=== PATIENT | male | born 1945 | race Caucasian/White ===

== ENCOUNTER 2019-01-26 10:59 | Observation (INO) | payer OTHER, MEDICARE ==
[2019-01-26] MEDS ORDERED: NITROGLYCERIN OINT 1 INCH/GM PACKET TOPICAL STA (11:48)
--- NOTE | 2019-01-26 11:56 | ED ---
General Adult HPI - General Chief complaint: Chest Pain Stated complaint: chest pain Time Seen by Provider: 01/26/19 11:15 Source: patient, RN notes reviewed Mode of arrival: ambulatory Limitations: no limitations - History of Present Illness Initial comments: This a 73-year-old male who presents emergency Department with no significant past medical history. Patient states he's been having chest pain since it goes away almost entirely but comes back. Patient states the pain is in the center of his chest he denies any radiation of the pain. Patient denies any shortness of breath. Patient denies any diaphoretic episodes. Patient denies any nausea. Patient states it is not reproducible with palpation. Patient states it's not reproducible with any type of movement. Patient states currently it is at its peak it it's only mild. Recent denies any smoking history. Patient denies any family history. Patient denies any lightheadedness or dizziness. Patient denies any headache patient denies numbness weakness. Patient denies abdominal pain patient denies any vomiting or diarrhea. Patient denies any recent fever chills or cough. Patient denies any swelling to legs or calf tenderness. Patient denies any recent trips or travel. - Related Data Home Medications Medication Instructions Recorded Confirmed Aspirin EC [Ecotrin Low Dose] 81 mg PO DAILY 01/26/19 01/26/19 Cholecalciferol (Vitamin D3) 2,000 unit PO DAILY 01/26/19 01/26/19 [Vitamin D3] Fish Oil/Dha/Epa [Fish Oil 1,200 1 cap PO DAILY 01/26/19 01/26/19 mg Fish Oil] Losartan [Cozaar] 50 mg PO DAILY 01/26/19 01/26/19 Milk Thistle 150 mg PO DAILY 01/26/19 01/26/19 Multivitamins, Thera [Multivitamin 1 tab PO DAILY 01/26/19 01/26/19 (formulary)] Turmeric/Turmeric Root Extract 1 cap PO DAILY 01/26/19 01/26/19 [Turmeric 450-50 mg Capsule] Zinc 50 mg PO DAILY 01/26/19 01/26/19 Allergies Allergy/AdvReac Type Severity Reaction Status Date / Time No Known Allergies Allergy Verified 01/26/19 12:05 Review of Systems ROS Statement: Those systems with pertinent positive or pertinent negative responses have been documented in the HPI. ROS Other: All systems not noted in ROS Statement are negative. Past Medical History Past Medical History: No Reported History History of Any Multi-Drug Resistant Organisms: None Reported Past Surgical History: Hernia Repair Additional Past Surgical History / Comment(s): collapsed lung Past Psychological History: No Psychological Hx Reported Smoking Status: Never smoker Past Alcohol Use History: None Reported Past Drug Use History: None Reported General Exam - General Exam Comments Initial Comments: GENERAL: Patient is well-developed and well-nourished. Patient is nontoxic and well- hydrated and is in mild distress. ENT: Neck is soft and supple. No significant lymphadenopathy is noted. Oropharynx is clear. Moist mucous membranes. Neck has full range of motion without eliciting any pain. EYES: The sclera were anicteric and conjunctiva were pink and moist. Extraocular movements were intact and pupils were equal round and reactive to light. Eyelids were unremarkable. PULMONARY: Unlabored respirations. Good breath sounds bilaterally. No audible rales rho nchi or wheezing was noted. CARDIOVASCULAR: There is a regular rate and rhythm without any murmurs gallops or rubs. ABDOMEN: Soft and nontender with normal bowel sounds. SKIN: Skin is clear with no lesions or rashes and otherwise unremarkable. NEUROLOGIC: Patient is alert and oriented x3. Cranial nerves II through XII are grossly intact. Motor and sensory are also intact. Normal speech, volume and content. Symmetrical smile. MUSCULOSKELETAL: Normal extremities with adequate strength and full range of motion. LYMPHATICS: No significant lymphadenopathy is noted PSYCHIATRIC: Normal psychiatric evaluation. Limitations: no limitations Course Vital Signs 01/26/19 01/26/19 11:14 12:07 Temperature 98.5 F Pulse Rate 110 H 91 Respiratory 17 16 Rate Blood Pressure 125/83 125/83 O2 Sat by Pulse 98 99 Oximetry Medical Decision Making - Medical Decision Making EKG shows normal sinus rhythm at 91 bpm [place] interval 172 QRS 76 QT interval 354 QTC is 435. Patient's EKG shows no ST segment elevation or depression or T wave abnormalities are noted. Chest x-ray shows no acute normalities. Patient received nitro paste and stated that shortly thereafter his pain completely subsided. I started the patient on heparin. I spoke with [facility] hospitalist and they agreed to accept the patient admitted the patient wrote admitting orders I consulted cardiology. I continued heparin and aspirin and Nitropaste on the floor. - Lab Data Result diagrams: 01/26/19 11:43 01/26/19 11:43 Lab Results 01/26/19 01/26/19 01/26/19 Range/Units 11:43 11:43 11:43 WBC 6.5 (3.8-10.6) k/uL RBC 4.95 (4.30-5.90) m/uL Hgb 17.1 (13.0-17.5) gm/dL Hct 47.7 (39.0-53.0) % MCV 96.4 (80.0-100.0) fL MCH 34.5 (25.0-35.0) pg MCHC 35.8 (31.0-37.0) g/dL RDW 14.6 (11.5-15.5) % Plt Count 154 (150-450) k/uL Neutrophils % 77 % Lymphocytes % 15 % Monocytes % 5 % Eosinophils % 1 % Basophils % 1 % Neutrophils # 5.0 (1.3-7.7) k/uL Lymphocytes # 1.0 (1.0-4.8) k/uL Monocytes # 0.3 (0-1.0) k/uL Eosinophils # 0.1 (0-0.7) k/uL Basophils # 0.0 (0-0.2) k/uL PT 10.7 (9.0-12.0) sec INR 1.0 (<1.2) APTT 25.4 (22.0-30.0) sec Sodium 139 (137-145) mmol/L Potassium 4.2 (3.5-5.1) mmol/L Chloride 105 (98-107) mmol/L Carbon Dioxide 20 L (22-30) mmol/L Anion Gap 14 mmol/L BUN 18 (9-20) mg/dL Creatinine 0.92 (0.66-1.25) mg/dL Est GFR (CKD-EPI)AfAm >90 (>60 ml/min/1.73 sqM) Est GFR (CKD-EPI)NonAf 84 (>60 ml/min/1.73 sqM) Glucose 86 (74-99) mg/dL Calcium 9.3 (8.4-10.2) mg/dL Magnesium 2.1 (1.6-2.3) mg/dL Total Bilirubin 1.6 H (0.2-1.3) mg/dL AST 30 (17-59) U/L ALT 30 (21-72) U/L Alkaline Phosphatase 50 (38-126) U/L Troponin I (0.000-0.034) ng/mL Total Protein 7.4 (6.3-8.2) g/dL Albumin 4.7 (3.5-5.0) g/dL 01/26/19 Range/Units 11:43 WBC (3.8-10.6) k/uL RBC (4.30-5.90) m/uL Hgb (13.0-17.5) gm/dL Hct (39.0-53.0) % MCV (80.0-100.0) fL MCH (25.0-35.0) pg MCHC (31.0-37.0) g/dL RDW (11.5-15.5) % Plt Count (150-450) k/uL Neutrophils % % Lymphocytes % % Monocytes % % Eosinophils % % Basophils % % Neutrophils # (1.3-7.7) k/uL Lymphocytes # (1.0-4.8) k/uL Monocytes # (0-1.0) k/uL Eosinophils # (0-0.7) k/uL Basophils # (0-0.2) k/uL PT (9.0-12.0) sec INR (<1.2) APTT (22.0-30.0) sec Sodium (137-145) mmol/L Potassium (3.5-5.1) mmol/L Chloride (98-107) mmol/L Carbon Dioxide (22-30) mmol/L Anion Gap mmol/L BUN (9-20) mg/dL Creatinine (0.66-1.25) mg/dL Est GFR (CKD-EPI)AfAm (>60 ml/min/1.73 sqM) Est GFR (CKD-EPI)NonAf (>60 ml/min/1.73 sqM) Glucose (74-99) mg/dL Calcium (8.4-10.2) mg/dL Magnesium (1.6-2.3) mg/dL Total Bilirubin (0.2-1.3) mg/dL AST (17-59) U/L ALT (21-72) U/L Alkaline Phosphatase (38-126) U/L Troponin I <0.012 (0.000-0.034) ng/mL Total Protein (6.3-8.2) g/dL Albumin (3.5-5.0) g/dL Critical Care Time Critical Care Time: Yes Total Critical Care Time: 35 Disposition Clinical Impression: Unstable angina pectoris Disposition: ADMITTED IP TO THIS HOSP Referrals: [facility],Clinic [Primary Care Provider] - 1-2 days Time of Disposition: 13:30
--- NOTE | 2019-01-26 12:08 | XR ---
EXAMINATION TYPE: XR chest 2V DATE OF EXAM: 01/26/2019 COMPARISON: None HISTORY: 73-year-old male with chest pain TECHNIQUE: PA and lateral views FINDINGS: The cardiomediastinal silhouette, aorta, and pulmonary vasculature are within normal limits. Some nod ularity at the left perihilar region probably represents vessels on end. Old healed fracture deformit ies left posterior ribs. No consolidation or pleural effusion. IMPRESSION: 1. No acute cardiopulmonary process. 2. Some left perihilar nodularity probably superimposition shadow with hilar vessels. 4-6 week follow -up radiographs recommended to reassess.
[2019-01-26 12:10] LABS: Basophils % (A) 1 %; Eosinophils # (A) 0.1 k/uL (0-0.7); Eosinophils % (A) 1 %; HCT 47.7 % (39.0-53.0); HGB 17.1 gm/dL (13.0-17.5); Lymphocytes % (A) 15 %; MCH 34.5 pg (25.0-35.0); MCHC 35.8 g/dL (31.0-37.0); MCV 96.4 fL (80.0-100.0); Mean Platelet Volume 7.2; Monocytes # (A) 0.3 k/uL (0-1.0); Monocytes % (A) 5 %; Neutrophils % (A) 77 %; Platelet Count 154 k/uL (150-450); RBC 4.95 m/uL (4.30-5.90); RDW 14.6 % (11.5-15.5); WBC 6.5 k/uL (3.8-10.6)
[2019-01-26 12:19] LABS: Partial Thromboplastin Time 25.4 sec (22.0-30.0); Prothrombin Time 10.7 sec (9.0-12.0)
[2019-01-26 12:31] LABS: ALT 30 U/L (21-72); AST 30 U/L (17-59); African American GFR (CKD) >90 (>60 ml/min/1.73 sqM); Albumin 4.7 g/dL (3.5-5.0); Alkaline Phosphatase 50 U/L (38-126); Anion Gap 14 mmol/L; Blood Urea Nitrogen 18 mg/dL (9-20); Calcium 9.3 mg/dL (8.4-10.2); Carbon Dioxide 20 mmol/L (22-30); Chloride 105 mmol/L (98-107); Glucose 86 mg/dL (74-99); Magnesium 2.1 mg/dL (1.6-2.3); Potassium 4.2 mmol/L (3.5-5.1); Sodium 139 mmol/L (137-145); Total Bilirubin 1.6 mg/dL (0.2-1.3); Total Protein 7.4 g/dL (6.3-8.2)
[2019-01-26] MEDS ORDERED: HEPARIN SODIUM,PORCINE 5,000 UNIT/ML 1 ML VIAL IV ONE (13:26)
[2019-01-26] MEDS ORDERED: HEPARIN SOD,PORK IN 0.45% NACL 25,000 UNIT in 0.45% NACL 1 250ML.BAG IV SCH (13:30)
[2019-01-26] MEDS ORDERED: NITROGLYCERIN SL TABS 0.4 MG TAB SUBLINGUAL PRN (13:33)
--- NOTE | 2019-01-26 15:49 | P.CRDCN ---
History of Present Illness History of present illness: This is a pleasant 73-year-old male past medical history significant for hypertension and borderline dyslipidemia. 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 He states on Saturday night he was at home and he started feeling a fluttering sensation in his chest. He states his heart felt like it was racing and irregu lar. The symptoms were associated with some mild dizziness. This happened for approximately 60-90 minutes and slowly subsided on its own. After the palpitations subsided he then noticed a dull ache in the left precordial region. The symptoms have been fairly constant since that time. He has been quite physically active moving furniture and television in his home and in the chest discomfort remained constant with no increase in intensity. He denies radiation to the arm, back, neck or jaw. He denies associated shortness of breath, nausea, vomiting or diaphoresis. He has had no further episodes of palpitations since Saturday. He is seen and examined sitting in the emergency depa rtment in no acute distress. He does describe ongoing dull achy chest discomfort. Telemetry tracings reveal sinus tachycardia heart rate goes up around 110 at times. EKG reveals sinus mechanism with no acute ST or T wave abnormalities noted. Chest x-ray is negative for an acute cardiopulmonary process. Laboratory data reviewed, cardiac enzymes negative 1. Current cardiac medications include losartan 50 mg daily and aspirin 81 mg daily. Patient states he underwent stress test 15 years ago in [place] that was unremarkable. He has never had a heart catheterization. At the time of my exam: CONSTITUTIONAL: Denies fever. Denies chills. EYES: Denies blurred vision. Denies vision changes. Denies eye pain. EARS, NOSE, MOUTH & THROAT: Denies headache. Denies sore throat. Denies ear pain. CARDIOVASCULAR: Denies chest pain. Denies shortness of breath. Denies orthopnea. Denies PND. Denies palpitations. RESPIRATORY: Denies cough. GASTROINTESTINAL: Denies abdominal pain. Denies diarrhea. Denies constipation. Denies nausea. Denies vomiting. MUSCULOSKELETAL: Denies myalgias. INTEGUMENTARY: Denies pruitis. Denies rash. NEUROLOGIC: Denies numbness. Denies tingling. Denies weakness. PSYCHIATRIC: Denies anxiety. Denies depression. ENDOCRINE: Denies fatigue. Denies weight change. Denies polydipsia. Denies polyurina. GENITOURINARY: Denies burning, hematuria or urgency with micturation. HEMATOLOGIC: Denies history of anemia. Denies bleeding. Blood pressure 114/90 heart rate 91 afebrile and maintaining oxygen saturation on room air GENERAL: This is a 73-year-old male in no apparent distress at the time of my examination. HEENT: Head is atraumatic, normocephalic. Pupils are equal, round. Sclerae anicteric. Conjunctivae are clear. Mucous membranes of the mouth are moist. Neck is supple. There is no jugular venous distention. No carotid bruit is heard. LUNGS: Clear to auscultation no wheezes, rales or rhonchi. No chest wall tenderness is noted on palpation or with deep breathing. HEART: Regular rate and rhythm with systolic ejection murmur at the base, no rubs or gallops. S1 and S2 heard. ABDOMEN: Soft, nontender. Bowel sounds are heard. No organomegaly noted. EXTREMITIES: No evidence of peripheral edema and no calf tenderness noted. VASCULAR: Radial and dorsalis pedis pulses palpated, no evidence of clubbing. NEUROLOGIC: Patient is awake, alert and oriented x3. ASSESSMENT Chest pain and palpitations. Hypertension Dyslipidemia Sinus tachycardia PLAN Continue to obtain serial cardiac enzymes to rule out an acute event. Check lipid profile and TSH. Obtain 2D echocardiogram and doppler study to assess cardiac structure and function. Ongoing cardiac monitoring for an acute arrhythmia. If enzymes are normal we will pursue stress testing. Thank you kindly for this consultation. Nurse Practitioner note has been reviewed, I agree with a documented findings and plan of care. Patient was seen and examined. Past Medical History Past Medical History: No Reported History History of Any Multi-Drug Resistant Organisms: None Reported Past Surgical History: Hernia Repair Additional Past Surgical History / Comment(s): collapsed lung Past Psychological History: No Psychological Hx Reported Smoking Status: Never smoker Past Alcohol Use History: None Reported Past Drug Use History: None Reported Medications and Allergies Home Medications Medication Instructions Recorded Confirmed Type Aspirin EC [Ecotrin Low Dose] 81 mg PO DAILY 01/26/19 01/26/19 History Cholecalciferol (Vitamin D3) 2,000 unit PO DAILY 01/26/19 01/26/19 History [Vitamin D3] Fish Oil/Dha/Epa [Fish Oil 1,200 1 cap PO DAILY 01/26/19 01/26/19 History mg Fish Oil] Losartan [Cozaar] 50 mg PO DAILY 01/26/19 01/26/19 History Milk Thistle 150 mg PO DAILY 01/26/19 01/26/19 History Multivitamins, Thera [Multivitamin 1 tab PO DAILY 01/26/19 01/26/19 History (formulary)] Turmeric/Turmeric Root Extract 1 cap PO DAILY 01/26/19 01/26/19 History [Turmeric 450-50 mg Capsule] Zinc 50 mg PO DAILY 01/26/19 01/26/19 History Allergies Allergy/AdvReac Type Severity Reaction Status Date / Time No Known Allergies Allergy Verified 01/26/19 12:05 Physical Exam Vitals: Vital Signs Temp Pulse Resp BP Pulse Ox 01/26/19 13:51 91 16 114/90 99 01/26/19 12:07 91 16 125/83 99 01/26/19 11:14 98.5 F 110 H 17 125/83 98 Intake and Output 01/26/19 01/26/19 01/26/19 06:59 14:59 22:59 Other: Weight 68.765 kg Results 01/26/19 11:43 01/26/19 11:43 Cardiac Enzymes 01/26/19 01/26/19 Range/Units 11:43 11:43 AST 30 (17-59) U/L Troponin I <0.012 (0.000-0.034) ng/mL Coagulation 01/26/19 Range/Units 11:43 PT 10.7 (9.0-12.0) sec APTT 25.4 (22.0-30.0) sec CBC 01/26/19 Range/Units 11:43 WBC 6.5 (3.8-10.6) k/uL RBC 4.95 (4.30-5.90) m/uL Hgb 17.1 (13.0-17.5) gm/dL Hct 47.7 (39.0-53.0) % Plt Count 154 (150-450) k/uL Comprehensive Metabolic Panel 01/26/19 Range/Units 11:43 Sodium 139 (137-145) mmol/L Potassium 4.2 (3.5-5.1) mmol/L Chloride 105 (98-107) mmol/L Carbon Dioxide 20 L (22-30) mmol/L BUN 18 (9-20) mg/dL Creatinine 0.92 (0.66-1.25) mg/dL Glucose 86 (74-99) mg/dL Calcium 9.3 (8.4-10.2) mg/dL AST 30 (17-59) U/L ALT 30 (21-72) U/L Alkaline Phosphatase 50 (38-126) U/L Total Protein 7.4 (6.3-8.2) g/dL Albumin 4.7 (3.5-5.0) g/dL Current Medications Generic Name Dose Route Start Last Admin Trade Name Freq PRN Reason Stop Dose Admin Aspirin 325 mg 01/27/19 09:00 Aspirin PO DAILY [facility] Heparin Sodium/Sodium Chloride 250 mls @ 8.252 mls/hr 01/26/19 13:30 01/26/19 13:46 25,000 unit/ Sodium Chloride IV 12 units/kg/hr .Q24H MANDI 8.252 mls/hr Administration Protocol 12 UNITS/KG/HR Nitroglycerin 0.4 mg 01/26/19 13:33 Nitrostat SUBLINGUAL Q5M PRN Chest Pain Nitroglycerin 1 inch 01/26/19 18:00 Nitro-Bid Oint TOPICAL Q6HR MANDI Intake and Output 01/26/19 01/26/19 01/26/19 06:59 14:59 22:59 Other: Weight 68.765 kg Patient Weight 01/27/19 06:59 Weight 68.765 kg 01/26/19 11:43 01/26/19 11:43
[2019-01-26] MEDS ORDERED: NITROGLYCERIN OINT 1 INCH/GM PACKET TOPICAL SCH (18:00)
[2019-01-26 21:13] VITALS: BMI 21.7
[2019-01-26 21:50] VITALS: RESP 18
--- NOTE | 2019-01-27 00:24 | P.HPIM ---
History of Present Illness H&P Date: 01/26/19 Chief Complaint: Chest pain Patient is a 73-year-old male with a known history of hypertension came to ER with the complaints of chest pain/pressure. Patient says that he felt like it irregular heartbeat About 5 days ago. One day after that she developed dull ache left retrosternal pain which has been present throughout the weekend. Patient tried to increase the dose of aspirin tablets but could not get relief. Patient has been constant. Denied any exertional shortness of breath or chest pain. Patient has been staying been without change in intensity. No radiation. No associated nausea vomiting or diaphoresis. Patient came to the hospital due to ongoing chest pain. Patient says that she gets heartburn symptoms and uses Tums on and off. Chest x-ray showed no acute cardiopulmonary process. EKG showed normal sinus rhythm.. No ST-T wave abnormalities noted. Troponin 2 negative Patient denied any prior cardiac history. Laboratory data showed slightly el evated bilirubin 1.6 normal being 1.3 Denied any abdominal pain. No diarrhea. No cough or sputum production. No recent illnesses. Review of Systems Constitutional: Patient denies any fever or chills . No generalized weakness or weight loss. Abdomen: Patient denied nausea vomiting and diarrhea and abdominal pain. Cardiovascular: Patient denies any chest pain or short of breath no palpitations. Respiratory: patient denied any cough is from production. No shortness of breath Neurologic: Patient denied any numbness or tingling headache. Musculoskeletal: Patient denies any complaints of joint swelling or deformity. Skin: Negative Psychiatric: Negative Endocrine: No heat or cold intolerance. No recent weight gain. Genitourinary: No dysuria or hematuria. All other 14 point ROS negative except the above Past Medical History Past Medical History: No Reported History History of Any Multi-Drug Resistant Organisms: None Reported Past Surgical History: Hernia Repair Additional Past Surgical History / Comment(s): collapsed lung Past Psychological History: No Psychological Hx Reported Smoking Status: Never smoker Past Alcohol Use History: None Reported Past Drug Use History: None Reported - Past Family History Father History Unknown: Yes Mother History Unknown: Yes Medications and Allergies Home Medications Medication Instructions Recorded Confirmed Type Aspirin EC [Ecotrin Low Dose] 81 mg PO DAILY 01/26/19 01/26/19 History Cholecalciferol (Vitamin D3) 2,000 unit PO DAILY 01/26/19 01/26/19 History [Vitamin D3] Fish Oil/Dha/Epa [Fish Oil 1,200 1 cap PO DAILY 01/26/19 01/26/19 History mg Fish Oil] Losartan [Cozaar] 50 mg PO DAILY 01/26/19 01/26/19 History Milk Thistle 150 mg PO DAILY 01/26/19 01/26/19 History Multivitamins, Thera [Multivitamin 1 tab PO DAILY 01/26/19 01/26/19 History (formulary)] Turmeric/Turmeric Root Extract 1 cap PO DAILY 01/26/19 01/26/19 History [Turmeric 450-50 mg Capsule] Zinc 50 mg PO DAILY 01/26/19 01/26/19 History Allergies Allergy/AdvReac Type Severity Reaction Status Date / Time No Known Allergies Allergy Verified 01/26/19 12:05 Physical Exam Vitals: Vital Signs Temp Pulse Resp BP Pulse Ox 01/26/19 13:51 91 16 114/90 99 01/26/19 12:07 91 16 125/83 99 01/26/19 11:14 98.5 F 110 H 17 125/83 98 Intake and Output 01/26/19 01/26/19 01/26/19 06:59 14:59 22:59 Other: Weight 68.765 kg PHYSICAL EXAMINATION: Patient is lying in the bed comfortably, no acute distress, awake alert and oriented.. HEENT: Normocephalic. Neck is supple. Pupils reactive. Nostrils clear. Oral cavity is moist. Ears reveal no drainage. Neck reveals no JVD, carotid bruits, or thyromegaly. CHEST EXAMINATION: Trachea is central. Symmetrical expansion. Lung meier clear to auscultation and percussion. CARDIAC: Normal S1, S2 with no gallops. No murmurs ABDOMEN: Soft. Bowel sounds normal. No organomegaly. No abdominal bruits. Extremities: reveal no edema. No clubbing or cyanosis Neurologically awake, alert, oriented x3 with well-coordinated movements. No focal deficits noted Skin: No rash or skin lesions. Psychiatric: Coperative. Nonsuicidal Musculoskeletal: No joint swelling or deformity. Normal range of motion. Results CBC & Chem 7: 01/26/19 11:43 01/26/19 11:43 Labs: Abnormal Lab Results - Last 24 Hours (Table) 01/26/19 Range/Units 11:43 Carbon Dioxide 20 L (22-30) mmol/L Total Bilirubin 1.6 H (0.2-1.3) mg/dL Thrombosis Risk Factor Assmnt - DVT/VTE Prophylaxis DVT/VTE Prophylaxis: Pharmacologic Prophylaxis ordered Assessment and Plan Assessment: Atypical chest pain. Constant dull pain. Ruled out ACS. Palpitations. Rule out arrhythmia. TSH within normal limits. Occasional GERD-like symptoms Hypertension DVT prophylaxis Plan: Patient will be continued on telemetry monitoring. Serial EKG and troponin 3. Cardiology was consulted. TSH is within normal limits. Continue to follow closely and further recommendations based on the clinical course. Time with Patient: Greater than 30
[2019-01-27 01:55] LABS: Cholesterol 255 mg/dL (<200); HDL Cholesterol 71 mg/dL (40-60); LDL Cholesterol,Calculated 124 mg/dL (0-99); Triglycerides 299 mg/dL (<150)
--- NOTE | 2019-01-27 08:51 | P.PN ---
Subjective This is a pleasant 73-year-old male past medical history significant for hypertension and borderline dyslipidemia. 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 He is seen and examined resting comfortably in bed in no acute distress. He denies chest discomfort or palpitations. Telemetry tracings unremarkable. Blood pressure 97/58 heart rate 74 afebrile maintaining oxygen saturation on room air. Laboratory data reviewed, cardiac enzymes negative 3, TSH 2.32, LDL 124, HDL 71, triglycerides 299 with a total cholesterol 255. Currently maintained on aspirin 81 mg daily, losartan 50 mg daily. GENERAL: This is a 73-year-old male in no apparent distress at the time of my examination. HEENT: Head is atraumatic, normocephalic. Pupils are equal, round. Sclerae a nicteric. Conjunctivae are clear. Mucous membranes of the mouth are moist. Neck is supple. There is no jugular venous distention. No carotid bruit is heard. LUNGS: Clear to auscultation no wheezes, rales or rhonchi. No chest wall tenderness is noted on palpation or with deep breathing. HEART: Regular rate and rhythm with systolic ejection murmur at the base, no rubs or gallops. S1 and S2 heard. EXTREMITIES: No evidence of peripheral edema and no calf tenderness noted. ASSESSMENT Chest pain and palpitations. Hypertension Dyslipidemia Sinus tachycardia PLAN An acute coronary event has been ruled out. Recommend proceeding with stress echocardiogram to assess for stress-induced ischemia. Initiate on atorvastatin 40 mg daily. Diet and exercise also suggested for lowering of LDL cholesterol. If any abnormality seen within the stress test we will consider coronary angiography. Nurse Practitioner note has been reviewed, I agree with a documented findings and plan of care. Patient was seen and examined. Objective - Vital Signs Vital signs: Vital Signs Temp 97.8 F 01/27/19 07:25 Pulse 74 01/27/19 07:25 Resp 18 01/27/19 07:25 BP 97/58 01/27/19 07:25 Pulse Ox 97 01/27/19 07:25 Intake & Output 01/26/19 01/27/19 01/27/19 18:59 06:59 18:59 Intake Total 8 Balance 8 Weight 68.765 kg Intake: Intake, IV Titration 8 Amount Heparin Sod,Pork in 0.45% 8 NaCl 25,000 unit In 0.45 % NaCl 1 250ml.bag @ 12 UNITS/KG/HR 8.252 mls/hr IV .Q24H MANDI Rx#: [id number] Other: Voiding Method Toilet # Voids 1 - Labs CBC & Chem 7: 01/26/19 11:43 01/26/19 11:43 Labs: Abnormal Lab Results - Last 24 Hours (Table) 01/26/19 01/26/19 Range/Units 11:43 11:43 Carbon Dioxide 20 L (22-30) mmol/L Total Bilirubin 1.6 H (0.2-1.3) mg/dL Triglycerides 299 H (<150) mg/dL Cholesterol 255 H (<200) mg/dL LDL Cholesterol, Calc 124 H (0-99) mg/dL HDL Cholesterol 71 H (40-60) mg/dL
[2019-01-27] MEDS ORDERED: ASPIRIN 325 MG TAB PO SCH (09:00)
[2019-01-27] MEDS ORDERED: LOSARTAN 50 MG TAB PO SCH (09:00)
[2019-01-27] MEDS ORDERED: ATORVASTATIN 40 MG TAB PO SCH (09:00)
[2019-01-27] MEDS ORDERED: ASPIRIN 81 MG PO SCH (09:00)
--- NOTE | 2019-01-27 10:35 | ECHOF ---
Referral Reason:cp MEASUREMENTS -------- HEIGHT: 180.3 cm WEIGHT: 68.5 kg BP: RVIDd: 2.9 cm (< 3.3) IVSd: 1.1 cm (0.6 - 1.1) LVIDd: 3.3 cm (3.9 - 5.3) LVPWd: 1.3 cm (0.6 - 1.1) IVSs: 1.7 cm LVIDs: 1.7 cm LVPWs: 1.7 cm LAESV Index (A-L): 13.88 ml/m Ao Diam: 4.0 cm (2.0 - 3.7) AV Cusp: 2.1 cm (1.5 - 2.6) LA Diam: 2.3 cm (2.7 - 3.8) MV EXCURSION: 12.039 mm (> 18.000) MV EF SLOPE: 19 mm/s (70 - 150) EPSS: 0.4 cm MV E Fabian: 0.49 m/s MV DecT: 173 ms MV A Fabian: 0.75 m/s MV E/A Ratio: 0.65 RAP: 5.00 mmHg RVSP: 20.05 mmHg TAPSE: 18.22 mm FINDINGS -------- Sinus rhythm. Resting tachycardia (HR>100bpm). This was a technically adequate study. The left ventricular size is normal. There is mild concentric left ventricular hypertrophy. Overa ll left ventricular systolic function is normal with, an EF between 55 - 60 %. The diastolic fillin g pattern is normal for the age of the patient 7.98. The right ventricle is normal in size. The right ventricular systolic function is normal. Normal LA size by volume 22+/-6 ml/m2. The right atrial size is normal. The aortic valve is trileaflet, and appears structurally normal. No aortic stenosis or regurgitation. The mitral valve is normal. There is trace mitral regurgitation. The tricuspid valve appears structurally normal. Trace tricuspid regurgitation present. Right harika tricular systolic pressure is normal at < 35 mmHg. There is no pulmonic regurgitation present. 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 Normal inferior vena cava with normal inspiratory collapse consistent with estimated right atrial pre ssure of 5 mmHg. There is no pericardial effusion. CONCLUSIONS -------- 1. Sinus rhythm. 2. Resting tachycardia (HR>100bpm). 3. This was a technically adequate study. 4. The left ventricular size is normal. 5. There is mild concentric left ventricular hypertrophy. 6. Overall left ventricular systolic function is normal with, an EF between 55 - 60 %. 7. The diastolic filling pattern is normal for the age of the patient 7.98 8. The right ventricle is normal in size. 9. Normal LA size by volume 22+/-6 ml/m2. 10. The aortic valve is trileaflet, and appears structurally normal. No aortic stenosis or regurgitat ion. 11. The mitral valve is normal. 12. There is trace mitral regurgitation. 13. The tricuspid valve appears structurally normal. 14. Trace tricuspid regurgitation present. 15. Right ventricular systolic pressure is normal at < 35 mmHg. 16. There is no pulmonic regurgitation present. 17. 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 18. Normal inferior vena cava with normal inspiratory collapse consistent with estimated right atrial pressure of 5 mmHg. 19. There is no pericardial effusion. MEDICAL OBSERVER: Adelita Rosen RDCS
[2019-01-27 11:12] VITALS: BP 105/66; PULSE 68; TEMP 98.5
--- NOTE | 2019-01-27 12:39 | ECHOS ---
STRESS ECHOCARDIOGRAM INDICATIONS: Chest pain. BASELINE HEART RATE: 89 BASELINE BLOOD PRESSURE: 114/63 MAXIMUM HEART RATE: 149 MAXIMUM BLOOD PRESSURE: 190/88 85% MPHR: 127 100% MPHR: 149 METS: 7.1 MAXIMUM STAGE REACHED: 2 TOTAL EXERCISE TIME: 6:00 CLINICAL INFORMATION: Baseline rhythm is sinus mechanism, rate of 89, normal axis and intervals. Normal echocardiogram baseline blood pressure 114/63 mmHg. Patient exercised on status post protocol for 6 minutes reaching peak rate 149 beats per minute which is equal to 100% maximum predicted heart rate. Peak blood pressure 190/88 mmHg. Test was terminated due to fatigue. There was no chest pain. Electrocardiographic monitoring revealed occasional PACs. There was no evidence of diagnostic ischemic ST deviation. Baseline echocardiogram revealed normal wall motion. At peak exercise, there was normal wall motion augmentation with no hypokinesis or dyskinesis. CONCLUSION: 1. Average exercise tolerance with normal electrocardiographic response to exercise. 2. Normal stress echocardiogram with no evidence of stress-induced ischemia. MMODL / IJN: [id number] /
--- NOTE | 2019-02-01 15:58 | P.DS ---
Providers Date of admission: 01/26/19 13:33 Expected date of discharge: 01/27/19 Attending physician: Katja Tolentino Consults: 01/26/19 13:33 Consult Physician Urgent Consulting Provider: [facility] Consult Reason/Comments: Unstable angina Do you want consulting provider notified?: Yes Primary care physician: [facility] Hospital Course: Discharge diagnosis Atypical chest pain. Constant dull pain. Ruled out ACS. Stress echo negative. Palpitations. Rule out arrhythmia. TSH within normal limits. Outpatient follow-up for possible monitor placement Occasional GERD-like symptoms Hypertension DVT prophylaxis Hospital course Patient is a 73-year-old male with a known history of hypertension came to ER with the complaints of chest pain/pressure. Patient says that he felt like it irregular heartbeat About 5 days ago. One day after that she developed dull ache left retrosternal pain which has been present throughout the weekend. Patient tried to increase the dose of aspirin tablets but could not get relief. Patient has been constant. Denied any exertional shortness of breath or chest pain. Patient has been staying been without change in intensity. No radiation. No associated nausea vomiting or diaphoresis. Patient came to the hospital due to ongoing chest pain. Patient says that she gets heartburn symptoms and uses Tums on and off. Chest x-ray showed no acute cardiopulmonary process. EKG showed normal sinus rhythm.. No ST-T wave abnormalities noted. Troponin 2 negative Patient denied any prior cardiac history. Laboratory data showed slightly elevated bilirubin 1.6 normal being 1.3 Denied any abdominal pain. No diarrhea. No cough or sputum production. No recent illnesses. 01/27/2019 Patient was seen by cardiology. Serial EKG and troponin 3 negative. Ruled out ACS. Currently denied any complaints of chest pain or shortness of breath. No fever no chills. No cough or sputum production. Patient underwent stress ech ocardiogram showed no inducible ischemia. Patient was cleared by cardiology. Currently being discharged home. PHYSICAL EXAMINATION: Patient is lying in the bed comfortably, no acute distress, awake alert and oriented.. HEENT: Normocephalic. Neck is supple. Pupils reactive. Nostrils clear. Oral cavity is moist. Ears reveal no drainage. Neck reveals no JVD, carotid bruits, or thyromegaly. CHEST EXAMINATION: Trachea is central. Symmetrical expansion. Lung meier clear to auscultation and percussion. CARDIAC: Normal S1, S2 with no gallops. No murmurs ABDOMEN: Soft. Bowel sounds normal. No organomegaly. No abdominal bruits. Extremities: reveal no edema. No clubbing or cyanosis Neurologically awake, alert, oriented x3 with well-coordinated movements. No focal deficits noted Skin: No rash or skin lesions. Psychiatric: Coperative. Nonsuicidal Musculoskeletal: No joint swelling or deformity. Normal range of motion. Vital Signs Temp 97.8 F 01/27/19 07:25 Pulse 74 01/27/19 07:25 Resp 18 01/27/19 07:25 BP 97/58 01/27/19 07:25 Pulse Ox 97 01/27/19 07:25 Intake & Output 01/26/19 01/27/19 01/27/19 18:59 06:59 18:59 Intake Total 8 Balance 8 Weight 68.765 kg Intake: Intake, IV Titration 8 Amount Heparin Sod,Pork in 0.45% 8 NaCl 25,000 unit In 0.45 % NaCl 1 250ml.bag @ 12 UNITS/KG/HR 8.252 mls/hr IV .Q24H [facility] Rx#: [id number] Other: Voiding Method Toilet # Voids 1 Patient Condition at Discharge: Good Plan - Discharge Summary Discharge Rx Participant: No New Discharge Prescriptions: New Atorvastatin [Lipitor] 40 mg PO DAILY #30 tab Continue Zinc 50 mg PO DAILY Turmeric/Turmeric Root Extract [Turmeric 450-50 mg Capsule] 1 cap PO DAILY Fish Oil/Dha/Epa [Fish Oil 1,200 mg Fish Oil] 1 cap PO DAILY Cholecalciferol (Vitamin D3) [Vitamin D3] 2,000 unit PO DAILY Multivitamins, Thera [Multivitamin (formulary)] 1 tab PO DAILY Losartan [Cozaar] 50 mg PO DAILY Aspirin EC [Ecotrin Low Dose] 81 mg PO DAILY Milk Thistle 150 mg PO DAILY Discharge Medication List Aspirin EC [Ecotrin Low Dose] 81 mg PO DAILY 01/26/19 [History] Cholecalciferol (Vitamin D3) [Vitamin D3] 2,000 unit PO DAILY 01/26/19 [History] Fish Oil/Dha/Epa [Fish Oil 1,200 mg Fish Oil] 1 cap PO DAILY 01/26/19 [History] Losartan [Cozaar] 50 mg PO DAILY 01/26/19 [History] Milk Thistle 150 mg PO DAILY 01/26/19 [History] Multivitamins, Thera [Multivitamin (formulary)] 1 tab PO DAILY 01/26/19 [History] Turmeric/Turmeric Root Extract [Turmeric 450-50 mg Capsule] 1 cap PO DAILY 01/26/19 [History] Zinc 50 mg PO DAILY 01/26/19 [History] Atorvastatin [Lipitor] 40 mg PO DAILY #30 tab 01/27/19 [Rx] Follow up Appointment(s)/Referral(s): Demi Jules MD [STAFF PHYSICIAN] - 02/06/19 10:00 am [facility],Clinic [Primary Care Provider] - 1-2 days Patient Instructions/Handouts: Angina (DC) Discharge Disposition: HOME SELF-CARE
== END 2019-01-27 15:57 | disposition home or self-care (01) ==
LOC: EC 10:59 → 1SOBS 13:33
PROVIDERS: ADMIT Internal Medicine; ATTEND Internal Medicine
DX: R07.89 Other chest pain (principal); R00.2 Palpitations; R00.0 Tachycardia, unspecified; R42 Dizziness and giddiness; K21.9 Gastro-esophageal reflux disease without esophagitis; I10 Essential (primary) hypertension; E78.5 Hyperlipidemia, unspecified; Z79.899 Other long term (current) drug therapy; Z79.82 Long term (current) use of aspirin
CPT/HCPCS: 96366 ×3; 96376; 96365; 99291; 36415; 93005; 93306; 93351; 80061; 80053; 84443; 83735; 84484; 85025; 85610; 85730; 71046; G0378 ×2; J1644 ×2

== ENCOUNTER → 2024-02-12 | Outpatient (CLI) | payer OTHER ==
--- NOTE | 2024-02-17 11:53 | MR ---
EXAMINATION TYPE: MR Prostate wo/w con DATE OF EXAM: 02/12/2024 9:05 AM COMPARISON: None. CLINICAL INDICATION: Male, 78 years old with history of C61 PROSTATE CANCER; Prostate cancer, elevate d PSA TECHNIQUE: Multi-planar, multi-sequence imaging of the pelvis is performed prior to and following the uncomplicated administration of bolus intravenous gadolinium. CONTRAST: 7 Gadavist Interpretive Criteria: PI-RADS v2.1 SERUM PSA: 06/2023 5.0 01/2024 6.21 SURGICAL PATHOLOGY: No data available. FINDINGS: Prostatic dimensions: 4.5 x 4.5 x 2.8 cm. "Bullet" Volume:50.36 (PSA density=0.12 ng/mL/mL) CENTRAL GLAND (Central and Transition Zones/CZ+TZ): Multiple bilateral, heterogenous appearing hypertrophic stromal nodules, without suspicious lesion. M edian lobe hypertrophy with protrusion into the base of the bladder. (PI-RADS 2) PERIPHERAL ZONE (PZ): Bilateral linear, indistinct wedgelike areas of low ADC, and low T2 signal, No evidence of masslike a bnormality, or localized perfusional hypervascularity, to further suggest a focus of clinically signi ficant prostate cancer. (PI-RADS 2) SEMINAL VESICLES (SV): Symmetric and unremarkable. PERIPROSTATIC TISSUES: Unremarkable. LYMPH NODES: No enlarged pelvic lymph node. REMAINING PELVIS: Trabeculated bladder wall likely secondary to chronic bladder outlet obstruction. No abnormal free or organized intrapelvic fluid collection. No pathologic bowel dilation or mural thickening. Colonic diverticula are present. Bilateral fat containing inguinal hernias. Trace amount high T2 signal in the right inguinal canal. OSSEOUS STRUCTURES: No suspicious osseous abnormality. IMPRESSION: 1. No specific features for high-risk prostate cancer. Maximum PI-RADS score: 2. 2. Moderate BPH, estimated gland volume 50.36 mL. 3. No suspicious osseous lesion. No lymphadenopathy. No evidence of prostate adenocarcinoma involving the periprostatic tissues. 4. Colonic diverticulosis. [facility], , 02/17/2024 11:50 AM
== END | disposition home or self-care (01) ==
LOC: RADMRIMAIN 08:03
PROVIDERS: ATTEND Urology
DX: C61 Malignant neoplasm of prostate
CPT/HCPCS: 72197